=== PATIENT | female | born 1945 | race Caucasian/White ===

== ENCOUNTER 2018-07-24 21:02 | Inpatient (IN) | payer OTHER ==
[2018-07-24 21:40] LABS: ADD MAN DIFF? NO
[2018-07-24] MEDS: SODIUM CHLORIDE 0.9% 1L BAG IV* (21:44)
[2018-07-24 21:45] LABS: WHITE BLOOD COUNT 16.5 10^3/ul (4.8-10.8)
[2018-07-24 21:45] LABS: BASOPHIL # 0.1 10^3/ul (0.0-0.1); BASOPHILS % 0.3 % (0.0-2.0); EOSINOPHILS % 0.1 % (0.0-7.0); HEMATOCRIT 31.6 % (37.0-47.0); HEMOGLOBIN 10.4 g/dl (12.0-16.0); LYMPHOCYTES % 5.9 % (15.0-51.0); MEAN CORPUSCULAR HEMOGLOBIN 30.5 pg (29.0-33.0); MEAN CORPUSCULAR HGB CONC 32.9 g/dl (32.0-37.0); MEAN CORPUSCULAR VOLUME 92.7 fl (82.0-101.0); MEAN PLATELET VOLUME 8.5 fl (7.4-10.4); MONOCYTE # 0.9 10^3/ul (0.3-0.9); MONOCYTES % 5.5 % (0.0-11.0); NEUTROPHIL # 14.5 10^3/ul (1.6-7.5); NEUTROPHILS % 87.5 % (39.0-77.0); PLATELET COUNT 391 10^3/UL (140-415); RED BLOOD COUNT 3.41 10^6/ul (4.20-5.40); RED CELL DISTRIBUTION WIDTH 13.1 % (11.5-14.5)
[2018-07-24] MEDS: ACETAMINOPHEN 325 MG TAB PO (21:45)
[2018-07-24 22:04] LABS: PROTIME 13.3 Sec (11.9-14.9)
[2018-07-24 22:05] LABS: PARTIAL THROMBOPLASTIN TIME 31.1 Sec (23.0-35.0)
[2018-07-24 22:12] LABS: ALANINE AMINOTRANSFERASE 29 IU/L (13-69); ALBUMIN 4.3 g/dl (3.3-4.9); ALBUMIN/GLOBULIN RATIO 0.97; ALKALINE PHOSPHATASE 85 IU/L (42-121); ANION GAP 14 (5-13); ASPARTATE AMINO TRANSFERASE 31 IU/L (15-46); BILIRUBIN,INDIRECT 0.4 mg/dl (0-1.1); BILIRUBIN,TOTAL 0.4 mg/dl (0.2-1.3); BLOOD UREA NITROGEN 29 mg/dl (7-20); CALCIUM 9.7 mg/dl (8.4-10.2); CARBON DIOXIDE 21 mmol/L (21-31); CHLORIDE 97 mmol/L (97-110); CREATININE 1.75 mg/dl (0.44-1.00); Estimated GFR 29 mL/min (>60); GLUCOSE 215 mg/dl (70-220); POTASSIUM 3.5 mmol/L (3.5-5.1); SODIUM 132 mmol/L (135-144); TOTAL PROTEIN 8.7 g/dl (6.1-8.1)
[2018-07-24 22:23] LABS: TROPONIN-I < 0.012 ng/ml (0.000-0.120)
[2018-07-24 22:46] LABS: URINE BLOOD (Dip) POC Trace-lysed (NEGATIVE); URINE KETONES (Dip) POC Negative (NEGATIVE); URINE LEUKOCYTE EST (Dip) POC Trace (NEGATIVE); URINE NITRITE (Dip) POC Negative (NEGATIVE); URINE TOTAL PROTEIN POC 1+ (NEGATIVE)
[2018-07-24 23:16] LABS: ADD UMIC YES; UR ASCORBIC ACID NEGATIVE (NEGATIVE); UR BACTERIA FEW /HPF (NONE SEEN); UR BILIRUBIN (Dip) NEGATIVE (NEGATIVE); UR BLOOD (Dip) 1+ mg/dL (NEGATIVE); UR CLARITY CLEAR (CLEAR); UR COLOR COLORLESS (YELLOW); UR GLUCOSE (Dip) 1+ mg/dL (NEGATIVE); UR KETONES (Dip) NEGATIVE (NEGATIVE); UR LEUKOCYTE ESTERASE (Dip) NEGATIVE Leu/ul (NEGATIVE); UR NITRITE (Dip) NEGATIVE (NEGATIVE); UR RBC 0 /HPF (0-5); UR SPECIFIC GRAVITY (Dip) 1.003 (1.003-1.030); UR TOTAL PROTEIN (Dip) NEGATIVE (NEGATIVE); UR UROBILINOGEN (Dip) NEGATIVE (NEGATIVE); UR WBC 2 /HPF (0-5)
[2018-07-24] MEDS ORDERED: NACL 0.9% 3 ML SYG IV (23:30)
[2018-07-24] MEDS ORDERED: BISACODYL (EC) 5 MG TAB PO (23:30)
[2018-07-24] MEDS ORDERED: ONDANSETRON 4 MG INJ IV (23:30)
[2018-07-24] MEDS ORDERED: VANCOMYCIN IV PER PHARMACY XX (23:30)
[2018-07-24] MEDS ORDERED: HYDROCODONE/APAP (5/325) TAB PO (23:30)
[2018-07-24] MEDS ORDERED: ACETAMINOPHEN 325 MG TAB PO (23:30)
[2018-07-24] MEDS ORDERED: DOCUSATE SODIUM 100 MG CAP PO (23:30)
[2018-07-24] MEDS: CEFAZOLIN 1 GM/50 ML (PMX) 50 ML IVPB (23:57)
[2018-07-24] MEDS: HEPARIN 5,000 UNIT/1 ML VIAL SC (23:58)
[2018-07-25] MEDS: VANCOMYCIN 1 GM in 250 ML IVPB (01:15)
[2018-07-25] MEDS: CEFTRIAXONE 1 GM/50 ML (PMX) 50 ML IVPB (01:21)
[2018-07-25 01:59] LABS: LACTIC ACID 0.9 mmol/L (0.5-2.0); URIC ACID 3.2 mg/dl (3.1-7.9)
[2018-07-25 04:06] LABS: ADD MAN DIFF? NO
[2018-07-25 04:08] LABS: BASOPHIL # 0.1 10^3/ul (0.0-0.1); BASOPHILS % 0.3 % (0.0-2.0); EOSINOPHILS % 0.1 % (0.0-7.0); HEMATOCRIT 27.1 % (37.0-47.0); HEMOGLOBIN 8.8 g/dl (12.0-16.0); LYMPHOCYTES # 1.6 10^3/ul (0.8-2.9); LYMPHOCYTES % 9.9 % (15.0-51.0); MEAN CORPUSCULAR HEMOGLOBIN 30.2 pg (29.0-33.0); MEAN CORPUSCULAR HGB CONC 32.5 g/dl (32.0-37.0); MEAN CORPUSCULAR VOLUME 93.1 fl (82.0-101.0); MEAN PLATELET VOLUME 8.4 fl (7.4-10.4); MONOCYTE # 1.3 10^3/ul (0.3-0.9); MONOCYTES % 7.7 % (0.0-11.0); NEUTROPHIL # 13.2 10^3/ul (1.6-7.5); NEUTROPHILS % 81.3 % (39.0-77.0); PLATELET COUNT 345 10^3/UL (140-415); RED BLOOD COUNT 2.91 10^6/ul (4.20-5.40); RED CELL DISTRIBUTION WIDTH 13.2 % (11.5-14.5)
[2018-07-25 04:08] LABS: WHITE BLOOD COUNT 16.3 10^3/ul (4.8-10.8)
[2018-07-25 04:26] LABS: HEMOGLOBIN A1C 6.6 % (0-5.9)
[2018-07-25 04:29] LABS: LACTIC ACID 0.6 mmol/L (0.5-2.0)
[2018-07-25 04:31] LABS: ALANINE AMINOTRANSFERASE 31 IU/L (13-69); ALBUMIN 3.3 g/dl (3.3-4.9); ALBUMIN/GLOBULIN RATIO 0.97; ALKALINE PHOSPHATASE 55 IU/L (42-121); ANION GAP 11 (5-13); ASPARTATE AMINO TRANSFERASE 27 IU/L (15-46); BILIRUBIN,INDIRECT 0.3 mg/dl (0-1.1); BILIRUBIN,TOTAL 0.3 mg/dl (0.2-1.3); BLOOD UREA NITROGEN 21 mg/dl (7-20); CALCIUM 8.9 mg/dl (8.4-10.2); CARBON DIOXIDE 20 mmol/L (21-31); CHLORIDE 113 mmol/L (97-110); CHOL/HDL RATIO 3.4 RATIO; CHOLESTEROL 128 mg/dl (100-200); CREATININE 1.46 mg/dl (0.44-1.00); Estimated GFR 35 mL/min (>60); GLUCOSE 169 mg/dl (70-220); HDL CHOLESTEROL 37 mg/dl (33-92); LDL CHOLESTEROL,CALCULATED 79 mg/dl; MAGNESIUM 2.1 mg/dl (1.7-2.5); POTASSIUM 3.7 mmol/L (3.5-5.1); SODIUM 144 mmol/L (135-144); TOTAL PROTEIN 6.7 g/dl (6.1-8.1); TRIGLYCERIDES 62 mg/dl (0-149)
[2018-07-25] MEDS: HEPARIN 5,000 UNIT/1 ML VIAL SC ×3 (05:33→21:36)
[2018-07-25 05:39] LABS: THYROID STIMULATING HORMONE 0.669 MIU/L (0.465-4.680)
[2018-07-25] MEDS: predniSONE 1 MG TAB PO (11:36)
[2018-07-25] MEDS ORDERED: GLUCOSE GEL 15 GRAM TUBE PO ×2 (16:00)
[2018-07-25] MEDS ORDERED: GLUCOSE GEL 15 GRAM TUBE BUCCAL (16:00)
[2018-07-25] MEDS ORDERED: GLUCAGON 1 MG INJ IM (16:00)
[2018-07-25] MEDS ORDERED: DEXTROSE 50% 50 ML SYRINGE IV ×2 (16:00)
[2018-07-25] MEDS: INSULIN ASPART [NOVOLOG] 3 ML PEN SC ×2 (17:23→20:56)
[2018-07-25 20:29] LABS: RHEUMATOID FACTOR POSITIVE (NEGATIVE)
[2018-07-26] MEDS: CEFTRIAXONE 1 GM/50 ML (PMX) 50 ML IVPB (01:49)
[2018-07-26] MEDS: ACCU-CHEK XX (01:51)
[2018-07-26] MEDS: HEPARIN 5,000 UNIT/1 ML VIAL SC ×3 (05:43→21:31)
[2018-07-26 05:59] LABS: ADD MAN DIFF? NO
[2018-07-26 06:07] LABS: BASOPHIL # 0.1 10^3/ul (0.0-0.1); BASOPHILS % 0.8 % (0.0-2.0); EOSINOPHILS # 0.1 10^3/ul (0.0-0.5); EOSINOPHILS % 1.3 % (0.0-7.0); HEMATOCRIT 28.8 % (37.0-47.0); HEMOGLOBIN 9.1 g/dl (12.0-16.0); LYMPHOCYTES # 2.5 10^3/ul (0.8-2.9); LYMPHOCYTES % 22.6 % (15.0-51.0); MEAN CORPUSCULAR HEMOGLOBIN 29.4 pg (29.0-33.0); MEAN CORPUSCULAR HGB CONC 31.6 g/dl (32.0-37.0); MEAN CORPUSCULAR VOLUME 93.2 fl (82.0-101.0); MEAN PLATELET VOLUME 8.8 fl (7.4-10.4); MONOCYTE # 0.7 10^3/ul (0.3-0.9); MONOCYTES % 5.9 % (0.0-11.0); NEUTROPHIL # 7.7 10^3/ul (1.6-7.5); PLATELET COUNT 354 10^3/UL (140-415); RED BLOOD COUNT 3.09 10^6/ul (4.20-5.40); RED CELL DISTRIBUTION WIDTH 13.2 % (11.5-14.5)
[2018-07-26 06:07] LABS: WHITE BLOOD COUNT 11.2 10^3/ul (4.8-10.8)
[2018-07-26 06:33] LABS: ANION GAP 12 (5-13); BLOOD UREA NITROGEN 17 mg/dl (7-20); CALCIUM 9.6 mg/dl (8.4-10.2); CARBON DIOXIDE 21 mmol/L (21-31); CHLORIDE 110 mmol/L (97-110); CREATININE 1.56 mg/dl (0.44-1.00); Estimated GFR 33 mL/min (>60); GLUCOSE 111 mg/dl (70-220); MAGNESIUM 2.2 mg/dl (1.7-2.5); PHOSPHORUS 3.2 mg/dl (2.5-4.9); POTASSIUM 3.3 mmol/L (3.5-5.1); SODIUM 143 mmol/L (135-144)
[2018-07-26] MEDS: POTASSIUM CHLORIDE (SR) 20 MEQ TAB PO (06:51)
[2018-07-26] MEDS: INSULIN ASPART [NOVOLOG] 3 ML PEN SC ×4 (07:54→20:41)
[2018-07-26] MEDS: predniSONE 1 MG TAB PO (08:35)
[2018-07-26] MEDS: SOD CHLORIDE 0.9% 1,000 ML IV (10:38)
[2018-07-26] MEDS: VANCOMYCIN 750 MG (PMX) 250 ML IVPB (23:31)
[2018-07-27] MEDS: ACCU-CHEK XX (01:06)
[2018-07-27] MEDS: CEFTRIAXONE 1 GM/50 ML (PMX) 50 ML IVPB (01:42)
[2018-07-27 04:50] LABS: ADD MAN DIFF? NO
[2018-07-27 05:01] LABS: BASOPHIL # 0.1 10^3/ul (0.0-0.1); BASOPHILS % 1.1 % (0.0-2.0); EOSINOPHILS # 0.3 10^3/ul (0.0-0.5); EOSINOPHILS % 3.9 % (0.0-7.0); HEMATOCRIT 27.3 % (37.0-47.0); HEMOGLOBIN 8.7 g/dl (12.0-16.0); LYMPHOCYTES # 2.1 10^3/ul (0.8-2.9); LYMPHOCYTES % 28.6 % (15.0-51.0); MEAN CORPUSCULAR HEMOGLOBIN 29.6 pg (29.0-33.0); MEAN CORPUSCULAR HGB CONC 31.9 g/dl (32.0-37.0); MEAN CORPUSCULAR VOLUME 92.9 fl (82.0-101.0); MEAN PLATELET VOLUME 8.7 fl (7.4-10.4); MONOCYTE # 0.4 10^3/ul (0.3-0.9); MONOCYTES % 5.2 % (0.0-11.0); NEUTROPHIL # 4.4 10^3/ul (1.6-7.5); NEUTROPHILS % 60.6 % (39.0-77.0); PLATELET COUNT 391 10^3/UL (140-415); RED BLOOD COUNT 2.94 10^6/ul (4.20-5.40); RED CELL DISTRIBUTION WIDTH 13.2 % (11.5-14.5)
[2018-07-27 05:01] LABS: WHITE BLOOD COUNT 7.2 10^3/ul (4.8-10.8)
[2018-07-27] MEDS: HEPARIN 5,000 UNIT/1 ML VIAL SC ×3 (05:54→22:05)
[2018-07-27 06:24] LABS: ANION GAP 11 (5-13); BLOOD UREA NITROGEN 26 mg/dl (7-20); CALCIUM 9.6 mg/dl (8.4-10.2); CARBON DIOXIDE 21 mmol/L (21-31); CHLORIDE 112 mmol/L (97-110); CREATININE 1.72 mg/dl (0.44-1.00); Estimated GFR 29 mL/min (>60); GLUCOSE 115 mg/dl (70-220); MAGNESIUM 2.1 mg/dl (1.7-2.5); PHOSPHORUS 3.6 mg/dl (2.5-4.9); SODIUM 144 mmol/L (135-144)
[2018-07-27] MEDS: INSULIN ASPART [NOVOLOG] 3 ML PEN SC ×4 (08:00→20:14)
[2018-07-27] MEDS: predniSONE 1 MG TAB PO (08:00)
[2018-07-27] MEDS: SOD CHLORIDE 0.9% 1,000 ML IV ×2 (09:30→10:00)
[2018-07-27] MEDS: DOXYCYCLINE 100 MG TAB PO (20:13)
[2018-07-28] MEDS: ACCU-CHEK XX (02:00)
[2018-07-28] MEDS: CEFTRIAXONE 1 GM/50 ML (PMX) 50 ML IVPB (02:46)
[2018-07-28 04:58] LABS: ADD MAN DIFF? NO
[2018-07-28 04:59] LABS: BASOPHIL # 0.1 10^3/ul (0.0-0.1); BASOPHILS % 1.1 % (0.0-2.0); EOSINOPHILS # 0.3 10^3/ul (0.0-0.5); EOSINOPHILS % 4.6 % (0.0-7.0); HEMATOCRIT 29.6 % (37.0-47.0); HEMOGLOBIN 9.4 g/dl (12.0-16.0); LYMPHOCYTES # 1.6 10^3/ul (0.8-2.9); LYMPHOCYTES % 22.3 % (15.0-51.0); MEAN CORPUSCULAR HEMOGLOBIN 29.7 pg (29.0-33.0); MEAN CORPUSCULAR HGB CONC 31.8 g/dl (32.0-37.0); MEAN CORPUSCULAR VOLUME 93.4 fl (82.0-101.0); MEAN PLATELET VOLUME 8.7 fl (7.4-10.4); MONOCYTE # 0.4 10^3/ul (0.3-0.9); MONOCYTES % 5.2 % (0.0-11.0); NEUTROPHIL # 4.9 10^3/ul (1.6-7.5); NEUTROPHILS % 66.3 % (39.0-77.0); PLATELET COUNT 407 10^3/UL (140-415); RED BLOOD COUNT 3.17 10^6/ul (4.20-5.40); RED CELL DISTRIBUTION WIDTH 13.3 % (11.5-14.5)
[2018-07-28 04:59] LABS: WHITE BLOOD COUNT 7.3 10^3/ul (4.8-10.8)
[2018-07-28 05:21] LABS: ANION GAP 10 (5-13); BLOOD UREA NITROGEN 26 mg/dl (7-20); CALCIUM 9.8 mg/dl (8.4-10.2); CARBON DIOXIDE 21 mmol/L (21-31); CHLORIDE 111 mmol/L (97-110); Estimated GFR 37 mL/min (>60); GLUCOSE 116 mg/dl (70-220); MAGNESIUM 2.1 mg/dl (1.7-2.5); PHOSPHORUS 4.6 mg/dl (2.5-4.9); POTASSIUM 4.1 mmol/L (3.5-5.1); SODIUM 142 mmol/L (135-144)
[2018-07-28] MEDS: HEPARIN 5,000 UNIT/1 ML VIAL SC ×2 (05:55→14:00)
[2018-07-28] MEDS: INSULIN ASPART [NOVOLOG] 3 ML PEN SC ×2 (08:00→12:00)
[2018-07-28] MEDS: DOXYCYCLINE 100 MG TAB PO (09:51)
[2018-07-28] MEDS: predniSONE 1 MG TAB PO (09:51)
[2018-07-30 16:37] LABS: RHEUM FACTOR TITER 1:32
== END 2018-07-28 15:10 | disposition home or self-care (01) | DRG 872 ==
LOC: PP2 23:08 → E/R 21:02 → PP2 07-25 00:19
PROVIDERS: Family Medicine
DX: A41.9 Sepsis, unspecified organism (principal); L03.115 Cellulitis of right lower limb; L03.113 Cellulitis of right upper limb; E87.2 Acidosis; N17.9 Acute kidney failure, unspecified; E87.1 Hypo-osmolality and hyponatremia; M19.90 Unspecified osteoarthritis, unspecified site; N18.9 Chronic kidney disease, unspecified; E11.22 Type 2 diabetes mellitus with diabetic chronic kidney disease; K57.30 Diverticulosis of large intestine without perforation or abscess without bleeding; E87.6 Hypokalemia; M06.9 Rheumatoid arthritis, unspecified
CPT/HCPCS: 36415; 71045; 73130-RT; 73610-RT; 73630; 74176; 76775; 80048; 80053; 80061; 81001; 81003; 82962; 83036; 83605; 83735; 84100; 84443; 84484; 84560; 85025; 85610; 85730; 86430; 87040-91; 87086; 93005; 93970; 99285-25